=== PATIENT | male | born 1965 | race Caucasian/White ===

== ENCOUNTER 2016-10-02 20:08 | Emergency (ER) | payer MEDICAID ==
[~2016-10-02] VITALS: Ht 177.8 cm; Wt 123.0 kg
[2016-10-02 20:11] VITALS: BP 189/110; PULSE 86; RESP 15; TEMP 97.9; O2SAT 97
[2016-10-02 21:31] VITALS: BP 184/98
--- NOTE | 2016-10-02 21:39 | PD ---
HPI Chief Complaint: Skin Problem Time Seen by Provider: 21:37 Travel History International Travel<30 days: No Contact w/Intl Traveler<30days: No Traveled to known affect area: No History of Present Illness HPI 51-year-old white male since emergency Department with complaints of left elbow and triceps area pain over the past week. He states that he was lifting weights when he felt something tear and pop in his left elbow. Since then his left arm is been swollen and bruised. He has difficulty moving his arm due to pain. He bumped his elbow on the shower yesterday which causes significant discomfort. He denies any numbness or tingling in his hand. No pain in the hand or wrist. He denies any other injuries. He does report having some popping and tearing sensation in the past when he is been exercising. [facility] Past Medical History Narrative Medical Hypertension Past Surgical History Surgical History: No Previous Surgery Social History Alcohol Use: Yes Tobacco Use: No Allergies-Medications (Allergen,Severity, Reaction): Coded Allergies: No Known Allergies (Unverified , 10/02/16) Review of Systems Except as stated in HPI: all other systems reviewed are Neg Physical Exam Narrative GENERAL: This is a well-nourished, well-developed patient, in no apparent distress. SKIN: No rashes, ecchymoses or lesions. Warm and dry. HEAD: Atraumatic. Normocephalic. EYES: PERRL, EOMI, no discharge or injection. No scleral icterus. EARS: Clear NOSE: Nasal turbinates appear normal. THROAT: Mucosa pink and moist. Airway patent. NECK: Trachea midline. supple, moves head freely. LUNGS: Clear to auscultation. CV: Regular in rhythm. ABDOMEN: Soft nontender. EXT: No clubbing cyanosis. Examination the left upper extremity reveals edema and ecchymosis to the upper arm from the axilla down to the elbow. He also has some edema into the forearm. He has localizing tenderness over the olecranon and triceps insertion. He has limited extension and flexion due to pain and swelling. He is able to move his shoulder freely. No pain in the wrist, hand. He has intact median/ulnar/radial nerves. There is no erythema. He has ecchymosis which is in the stages of early healing. Data Data Last Documented VS Vital Signs Date Time Temp Pulse Resp B/P Pulse Ox O2 Delivery O2 Flow Rate FiO2 10/02/16 21:31 184/98 10/02/16 20:11 97.9 86 15 97 Room Air Orders Elbow, Complete (4 Vws) (10/02/16 21:32) Mri Joint Elbow W/O Contrast (10/02/16 ) MDM Medical Decision Making Medical Screen Exam Complete: Yes Emergency Medical Condition: Yes Medical Record Reviewed: Yes Interpretation(s) Left elbow: There is a avulsion fracture off the olecranon consistent with a triceps tendon tear. He has significant arthritic changes. Differential Diagnosis MDM: High Differential diagnoses: Fracture, sprain, strain, dislocation, contusion, neurovascular injury Narrative Course The case has been discussed with Dr. Garcia he has requested MRI of the elbow and to place the patient in a long-arm splint and he will see him on Wednesday. The patient went to have his MRI of his left arm but unfortunately he was too big to fit in the tube. On the way back to the emergency department the patient refused to be placed back in his room. He stated that he no longer wanted to continue his care here. He notify the nursing staff that he had planned to go home. He refused his splint. He stated that if he wanted to get additional care he'll come back on Wednesday. This was told to me by the ER nurse Roberto. Diagnosis Primary Impression: Left against medical advice Omar Moise Oct 02, 2016 21:39
--- NOTE | 2016-10-02 22:09 | RADRPT ---
EXAM DATE/TIME: 10/02/2016 21:55 [facility] COMPARISON: No previous studies available for comparison. INDICATIONS : Pain and bruising in arm after lifting weights. MEDICAL HISTORY : None. SURGICAL HISTORY : None. ENCOUNTER: Initial ACUITY: 1 day PAIN SCORE: 10/10 LOCATION: Left elbow. FINDINGS: There is evidence of severe arthritic changes involving the left elbow joint. There are bone fragmen ts in the expected region of the triceps muscle/tendon which raises the possibility of avulsion fract ure and possible triceps tendon rupture. Clinical correlation is recommended. CONCLUSION: 1. Bone fragments in the expected region of the triceps musculotendinous junction raising the possibi lity of avulsion fracture and triceps tendon rupture. Clinical correlation is recommended. 2. 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 Trevor Torres MD on October 02, 2016 at 22:00 Board Certified Radiologist. This report was verified electronically.
== END 2016-10-03 01:32 | disposition left against medical advice (07) ==
LOC: NETRI 20:08
DX: M25.522 Pain in left elbow (principal)
CPT/HCPCS: 73080; 99283